=== PATIENT | male | born 1995 | race African-American/Black ===

== ENCOUNTER 2016-08-14 07:06 | Emergency (ER) | payer OTHER ==
[~2016-08-14] VITALS: Ht 177.8 cm; Wt 105.5 kg
[2016-08-14 07:13] VITALS: TEMP 37.1; Ht 177.8 cm; Wt 105.5 kg
[2016-08-14] MEDS ORDERED: SODIUM CHLORIDE 0.9% 1000ML 1,000 ML IV STA ×2 (07:46→08:18)
[2016-08-14] MEDS ORDERED: ONDANSETRON INJ 2 MG/ML 2 ML VIAL IV STA (07:46)
[2016-08-14 07:56] LABS: BASO % 0.2 %; BASO ABS # 0.03 K/uL (0-0.2); COMPLETE YES; EOS % 1.2 %; HEMATOCRIT 44.6 % (42-52); IG% 0.2 %; LYMPH % 20.4 %; LYMPH ABS # 2.56 K/uL (1.2-3.4); MEAN CELL VOLUME 89.6 fL (80-100); MEAN CORPUSCULAR HEMOGLOBIN 30.3 pg (25-34); MEAN CORPUSCULAR HGB CONC 33.9 g/dl (32-36); MONO % 6.9 %; NEUT % 71.1 %; PLATELET COUNT 242 K/uL (130-400); RED BLOOD COUNT 4.98 M/uL (4.7-6.1); WHITE BLOOD COUNT 12.55 K/uL (4.8-10.8)
[2016-08-14 08:04] LABS: CREATININE 1.1 mg/dl (0.60-1.40)
[2016-08-14 08:05] LABS: BUN/CREATININE RATIO 12.1 (10-20); CALCIUM 9.3 mg/dl (8.5-10.1)
--- NOTE | 2016-08-14 08:36 | EMERGENCY ROOM VISIT NOTE ---
History First contact with patient: 07:16 Chief Complaint: VOMITING Stated Complaint: VOMITING AND PERSISTENT NAUSEA Nursing Triage Summary: Pt states "I had a sore throat and I took this sore throat spray. My girlfriend told me to swallow it and now I have been throwing up and diarrhea." Pt reports symptoms started at 0100 this am. History of Present Illness The patient is a 20 year old male who presents to the Emergency Department by private vehicle for evaluation of his nausea, vomiting, and diarrhea. He reports that last evening he had a sore throat. He used Cepacol spray in his throat. Approximate one hour later at 1 AM he developed nausea, vomiting, and diarrhea. He's had persistent symptoms since. The patient denies any fevers or chills. He denies any headaches, dizziness, lightheadedness, hematemesis, hematochezia, melena, hematuria, or dysuria. He denies any pain rating his discomfort a 0/10. He reports no recent long distance travel, consumption of raw/undercooked foods, drinking from poor water sources, or recent antibiotic use. He denies any recent sick contacts. The patient reports no previous abdominal surgeries. Review of Systems A complete 10-point Review of Systems was discussed with the patient, with pertinent positives and negatives listed in the History of Present Illness. All remaining Review of Systems questions can be considered negative unless otherwise specified. Social History Smoking Status: Never Smoker Smokeless Tobacco Use: No Drug Use: none Marital Status: single Housing Status: lives with roommate Occupation Status: [employer] student Current/Historical Medications Scheduled PRN Ondasetron Odt (Zofran Odt), 1 TAB SL Q6 PRN for Nausea or Vomiting Allergies Coded Allergies: No Known Allergies (Unverified , 08/14/16) Physical Exam Vital Signs Date Time Temp Pulse Resp B/P Pulse Ox O2 Delivery O2 Flow Rate FiO2 08/14/16 10:45 105 17 123/85 100 Room Air 08/14/16 09:18 101 16 149/100 99 Room Air 08/14/16 07:13 37.1 102 16 166/91 98 Room Air Pain Rating (0-10): 0 Physical Exam VITAL SIGNS - Vital signs and nursing notes were reviewed. GENERAL - 20-year-old male appearing his stated age who is in no acute distress. Communicates well with provider and answers questions appropriately. HEAD - NC/AT. EYES - PERRL with EOMI bilaterally. Sclera anicteric. Palpebral conjunctiva pink and moist with no injection noted. EARS - No deformities of external structures noted on gross examination bilaterally. No pain elicited with palpation of the tragus bilaterally. External auditory canals without discharge or otorrhea. Tympanic membranes pearly ray without retraction or bulging. NOSE - Midline and without cyanosis. No epistaxis or purulent drainage noted. Septum midline without deviation or septal hematoma noted. MOUTH/OROPHARYNX - Without perioral cyanosis. Buccal mucosa pink and moist and without leukoplakia. Tongue midline with equal elevation of palate bilaterally. No tonsillar hypertrophy, erythema, or exudates noted. Good dentition noted. NECK - Neck with FROM. Supple to palpation. No nuchal rigidity. LUNGS - Chest wall symmetric without accessory muscle use, intercostals retractions, or central cyanosis. Normal vesicular breath sounds CTA B/L. No wheezes, rales, or rhonchi appreciated. CARDIAC - RRR with S1/S2. No murmur, rubs, or gallops appreciated. ABDOMEN - Abdominal contour obese and without pulsations or visible masses. BS normoactive all four quadrants. No tenderness to palpation appreciated throughout. No guarding. No Rebound Tenderness. Negative Rovsing's. Negative Gibson's. No palpable masses, hepatosplenomegaly, or ascites noted. PSYCH - A&Ox3 and cooperates fully with examiner. Pt is very pleasant and interacts well with examiner. Medical Decision & Procedures Laboratory Results 08/14/16 07:35 Red Blood Count 4.98, Mean Corpuscular Volume 89.6, Mean Corpuscular Hemoglobin 30.3, Mean Corpuscular Hemoglobin Concent 33.9, Mean Platelet Volume 11.0, Neutrophils (%) (Auto) 71.1, Lymphocytes (%) (Auto) 20.4, Monocytes (%) (Auto) 6.9, Eosinophils (%) (Auto) 1.2, Basophils (%) (Auto) 0.2, Neutrophils # (Auto) 8.91, Lymphocytes # (Auto) 2.56, Monocytes # (Auto) 0.87, Eosinophils # (Auto) 0.15, Basophils # (Auto) 0.03 08/14/16 07:35 Test 08/14/16 07:35 08/14/16 08:50 White Blood Count 12.55 K/uL (4.8-10.8) Red Blood Count 4.98 M/uL (4.7-6.1) Hemoglobin 15.1 g/dL (14.0-18.0) Hematocrit 44.6 % (42-52) Mean Corpuscular Volume 89.6 fL (80-100) Mean Corpuscular Hemoglobin 30.3 pg (25-34) Mean Corpuscular Hemoglobin Concent 33.9 g/dl (32-36) Platelet Count 242 K/uL (130-400) Mean Platelet Volume 11.0 fL (7.4-10.4) Neutrophils (%) (Auto) 71.1 % Lymphocytes (%) (Auto) 20.4 % Monocytes (%) (Auto) 6.9 % Eosinophils (%) (Auto) 1.2 % Basophils (%) (Auto) 0.2 % Neutrophils # (Auto) 8.91 K/uL (1.4-6.5) Lymphocytes # (Auto) 2.56 K/uL (1.2-3.4) Monocytes # (Auto) 0.87 K/uL (0.11-0.59) Eosinophils # (Auto) 0.15 K/uL (0-0.5) Basophils # (Auto) 0.03 K/uL (0-0.2) RDW Standard Deviation 38.1 fL (36.4-46.3) RDW Coefficient of Variation 11.8 % (11.5-14.5) Immature Granulocyte % (Auto) 0.2 % Immature Granulocyte # (Auto) 0.03 K/uL (0.00-0.02) Anion Gap 10.0 mmol/L (3-11) Est Creatinine Clear Calc Drug Dose 131.4 ml/min Estimated GFR () 112.2 Estimated GFR (Non- 96.8 BUN/Creatinine Ratio 12.1 (10-20) Calcium Level 9.3 mg/dl (8.5-10.1) Magnesium Level 2.0 mg/dl (1.8-2.4) Total Bilirubin 1.4 mg/dl (0.2-1) Aspartate Amino Transf (AST/SGOT) 11 U/L (15-37) Alanine Aminotransferase (ALT/SGPT) 18 U/L (12-78) Alkaline Phosphatase 98 U/L (45-117) Total Protein 8.2 gm/dl (6.4-8.2) Albumin 4.1 gm/dl (3.4-5.0) Globulin 4.1 gm/dl (2.5-4.0) Albumin/Globulin Ratio 1.0 (0.9-2) Lipase 127 U/L (73-393) Urine Color YELLOW Urine Appearance CLEAR (CLEAR) Urine pH 7.0 (4.5-7.5) Urine Specific [place] 1.009 (1.000-1.030) Urine Protein NEG (NEG) Urine Glucose (UA) NEG (NEG) Urine Ketones NEG (NEG) Urine Occult Blood NEG (NEG) Urine Nitrite NEG (NEG) Urine Bilirubin NEG (NEG) Urine Urobilinogen NEG (NEG) Urine Leukocyte Esterase NEG (NEG) Medications Administered Medications (Trade) Dose Ordered Sig/Amanda Route Start Time Stop Time Status Last Admin Dose Admin Sodium Chloride (Nss 1000ml) 1,000 ml @ 999 mls/hr Q1H1M STAT IV 08/14/16 07:46 08/14/16 08:46 DC 08/14/16 07:46 999 MLS/HR Ondansetron HCl 4 mg 4 mg NOW STAT IV 08/14/16 07:46 08/14/16 07:48 DC 08/14/16 07:53 4 MG Sodium Chloride (Nss 1000ml) 1,000 ml @ 999 mls/hr Q1H1M STAT IV 08/14/16 08:18 08/14/16 09:18 DC 08/14/16 09:17 999 MLS/HR ED Course Patient was seen and evaluated by myself. Labs were drawn, saline lock in place. The patient was hydrated with a 1000 mL normal saline bolus. He received 4 mg Zofran intravenously for nausea. Laboratory results demonstrated a mild leukocytosis. The patient is not anemic. There are no significant electrolyte abnormalities. Urinalysis is unremarkable. The patient was hydrated with an additional 1000 mL normal saline. The patient reports feeling much better at this time. The patient was encouraged to continue to follow up with his primary care provider from today's visit. He was educated on worrisome symptoms for return visit to the emergency department. Patient discharged home in good condition. Medical Decision Given the patient's presentation and stated complaints, I did elect to perform the above-mentioned workup. The patient presents today with nausea, vomiting, diarrhea. He did have a sore throat. Rapid strep sided negative. The patient had a mild cytosis. His abdomen is soft and nontender to palpation. Patient is likely experiencing an acute gastritis. He responded well to IV fluid resuscitation and antinausea medication. The patient will follow-up with [facility] from today's visit. He will return for any changing/ worsening symptoms. Patient discharged home afebrile and in good condition. In the evaluation and treatment of this patient, the following differential diagnoses were considered: Appendicitis, Diverticulitis, Diverticulosis, Colitis , Ischemic Colitis, Inflammatory Bowel Disease, Irritable Bowel Disease, Testicular Torsion, Kidney Stone, Pyelonephritis, Hydronephrosis, Cholecystitis , Ascending Cholangitis, Choledocholithiasis, GERD. Impression Primary Impression: Nausea, vomiting, and diarrhea Additional Impression: Sore throat Departure Information Dispostion Home / Self-Care Condition GOOD Prescriptions Ondasetron Odt (ZOFRAN ODT) 4 Mg Tab 1 TAB SL Q6 Y for Nausea or Vomiting for 5 Days, #20 TAB Prov: Justyn Benites, CHRISTINE 08/14/16 Referrals No Doctor, Assigned (PCP) Patient Instructions ED Food Poison Or Gastroenteritis, [facility] Additional Instructions You have been treated in the Emergency Department your Nausea, Vomiting, and Diarrhea. You have been prescribed Zofran to be used for any nausea or vomiting. Take as prescribed. For pain control, you can use the following wcal-eey-[id number] medicines (if >12 yo): - Regular strength (325mg/tab) Tylenol (acetaminophen) 2 tabs every 4-6 hours as needed. Do not exceed 12 tablets in a 24 hour period. Avoid taking more than 4 grams (4000 mg) of Tylenol per day. This includes any other sources of acetaminophen you may take on a regular basis. - Regular strength (200 mg/tab) Advil (ibuprofen) 1-2 tabs every 4-6 hours as needed. Do not exceed a dose of 3200 mg per day. Drink plenty of water and stay well hydrated. As with any trip to the Emergency Department, you should follow-up with your Primary Care Provider from today's visit. Return to the emergency department if your symptoms persist despite treatment plan outlined above or if the following symptoms occur: increased fevers, chills , worsening nausea/vomiting, blood in your stool or urine. Problem Qualifiers
[2016-08-14 09:49] LABS: URINE APPEARANCE CLEAR (CLEAR); URINE BILIRUBIN NEG (NEG); URINE COLOR YELLOW; URINE NITRITE NEG (NEG); URINE SPECIFIC GRAVITY 1.009 (1.000-1.030); UROBILINOGEN NEG (NEG); ZZUR CULT IF INDIC CLEAN CATCH NO
[2016-08-14 09:50] LABS: MANUAL MICROSCOPIC REQUIRED? NO; REVIEW REQ? NO
[2016-08-14] MEDS ORDERED: ONDA4TAB10 SL (10:22)
[2016-08-14 10:45] VITALS: BP 123/85; PULSE 105; O2SAT 100
== END 2016-08-14 10:54 | disposition home or self-care (01) ==
LOC: C.EDB 07:08 → C.EDA 10:54
DX: K52.9 Noninfective gastroenteritis and colitis, unspecified (principal); R11.2 Nausea with vomiting, unspecified; R19.7 Diarrhea, unspecified; D72.829 Elevated white blood cell count, unspecified

== ENCOUNTER 2017-03-27 23:10 | Emergency (ER) | payer OTHER ==
[~2017-03-27] VITALS: Ht 182.9 cm; Wt 113.9 kg
[2017-03-27 23:17] VITALS: TEMP 36.8; Ht 182.9 cm; Wt 113.9 kg
--- NOTE | 2017-03-27 23:56 | EMERGENCY ROOM VISIT NOTE ---
History Report prepared by Moriah: Vishnu Mendoza Under the Supervision of: Dr. Erika Willard D.O. First contact with patient: 23:22 Chief Complaint: TACHYCARDIA Stated Complaint: CHEST PAIN, STOMACH PAIN, HEART BEATING FAST Nursing Triage Summary: Patient reports chest and abdominal pain since friday. Patient reports tonight experienceing palpitations. History of Present Illness The patient is a 21 year old male who presents to the Emergency Room with complaints of worsening chest pain that started 2 days ago. He says that the pain has been constant, but he woke up with worsened pain this morning. He adds that he has had constant abdominal pain that started 2 days ago as well, which he describes as a heaviness. The patient notes that he has never had anything like this before. The patient says that around 6 hours ago, he had an episode where he felt like his heart was racing. He adds that his chest feels like it is "chelsey". The patient notes that he vomited once yesterday. He adds that he ate [employer] before coming here, and says that he is nauseous. The patient states that the last time he ate before that was around 1300 this afternoon, as he had exams. He denies any shortness of breath, sore throat, cough, diarrhea, constipation, urinary symptoms, penis drainage, groin pain, leg cramping, or leg swelling. He says that he has no medical problems and does not take any daily medications. The patient states that he has not used any over -the-counter medications or any supplements, but does drink vitamin water. He adds that he exercises around 2 to 3 times per week. Source of History: patient Onset: 2 days ago Position: chest Quality: other (feels like it is "chelsey") Timing: worsening Associated Symptoms: + nausea, + vomiting, + abdominal pain (heaviness), No sorethroat, No cough, No SOB, No diarrhea, No urinary symptoms Note: Associated symptoms: Episode of heart racing earlier. Denies constipation, penis drainage, groin pain, leg cramping, leg swelling. Review of Systems See HPI for pertinent positives & negatives. A total of 10 systems reviewed and were otherwise negative. Past Medical & Surgical Medical Problems: (1) HTN (hypertension) (2) No chronic diseases present Family History Cancer Diabetes mellitus Hypertension Social History Smoking Status: Never Smoker Drug Use: none Marital Status: single Housing Status: lives with roommate Occupation Status: [employer] student Current/Historical Medications No Active Prescriptions or Reported Meds Allergies Coded Allergies: No Known Allergies (Unverified , 03/27/17) Physical Exam Vital Signs Date Time Temp Pulse Resp B/P (MAP) Pulse Ox O2 Delivery O2 Flow Rate FiO2 03/28/17 02:22 70 16 120/64 99 03/28/17 00:50 94 18 150/83 98 Room Air 03/27/17 23:36 92 03/27/17 23:17 36.8 97 20 139/85 98 Room Air Physical Exam HEENT: Head - normocephalic and atraumatic Pupils are equal, round, and reactive to light. Extraocular eye muscles are intact, and sclera are anicteric. Nose - moist nasal mucosa without discharge. Mouth - moist buccal mucosa. Oropharynx is nonerythematous and there is no tonsillar exudate or edema noted. Neck: Supple; no JVD, nuchal rigidity, cervical lymphadenopathy. Heart: Regular rate and rhythm. There is a normal S1 and S2 with no murmurs, clicks, or gallops appreciated. Lungs: Clear to auscultation bilaterally with no wheezes, rales, or rhonchi. Abdomen: Soft, moderate tenderness over McBurney's point, nondistended, with good bowel sounds. There are no palpable pulsatile masses or hepatosplenomegaly. There is no guarding, rigidity, or rebound noted. Extremities: No evidence of cyanosis, clubbing, or edema. There are easily palpable peripheral pulses. Skin: warm and dry with good turgor and no rashes. Medical Decision & Procedures ER Provider Diagnostic Interpretation: CT results as stated below per my review and radiologist interpretation: CT ABDOMEN & PELVIS: Unremarkable appendix. No colitis or bowel obstruction. No renal calculi or obstructive changes. Radiologist: Irma Bullard M.D. Study read at 00:52 and initial results transmitted at 01:15 Laboratory Results 03/27/17 23:25 Red Blood Count 5.01, Mean Corpuscular Volume 90.8, Mean Corpuscular Hemoglobin 30.5, Mean Corpuscular Hemoglobin Concent 33.6, Mean Platelet Volume 10.8, Neutrophils (%) (Auto) 68.7, Lymphocytes (%) (Auto) 22.9, Monocytes (%) (Auto) 6.0, Eosinophils (%) (Auto) 2.0, Basophils (%) (Auto) 0.2, Neutrophils # (Auto) 8.08, Lymphocytes # (Auto) 2.69, Monocytes # (Auto) 0.70, Eosinophils # (Auto) 0.23, Basophils # (Auto) 0.02 03/27/17 23:25 Test 03/27/17 23:15 03/27/17 23:25 Urine Color YELLOW Urine Appearance CLEAR (CLEAR) Urine pH 6.5 (4.5-7.5) Urine Specific [place] 1.021 (1.000-1.030) Urine Protein NEG (NEG) Urine Glucose (UA) NEG (NEG) Urine Ketones NEG (NEG) Urine Occult Blood NEG (NEG) Urine Nitrite NEG (NEG) Urine Bilirubin NEG (NEG) Urine Urobilinogen NEG (NEG) Urine Leukocyte Esterase NEG (NEG) White Blood Count 11.74 K/uL (4.8-10.8) Red Blood Count 5.01 M/uL (4.7-6.1) Hemoglobin 15.3 g/dL (14.0-18.0) Hematocrit 45.5 % (42-52) Mean Corpuscular Volume 90.8 fL (80-100) Mean Corpuscular Hemoglobin 30.5 pg (25-34) Mean Corpuscular Hemoglobin Concent 33.6 g/dl (32-36) Platelet Count 283 K/uL (130-400) Mean Platelet Volume 10.8 fL (7.4-10.4) Neutrophils (%) (Auto) 68.7 % Lymphocytes (%) (Auto) 22.9 % Monocytes (%) (Auto) 6.0 % Eosinophils (%) (Auto) 2.0 % Basophils (%) (Auto) 0.2 % Neutrophils # (Auto) 8.08 K/uL (1.4-6.5) Lymphocytes # (Auto) 2.69 K/uL (1.2-3.4) Monocytes # (Auto) 0.70 K/uL (0.11-0.59) Eosinophils # (Auto) 0.23 K/uL (0-0.5) Basophils # (Auto) 0.02 K/uL (0-0.2) RDW Standard Deviation 39.3 fL (36.4-46.3) RDW Coefficient of Variation 11.7 % (11.5-14.5) Immature Granulocyte % (Auto) 0.2 % Immature Granulocyte # (Auto) 0.02 K/uL (0.00-0.02) Anion Gap 8.0 mmol/L (3-11) Est Creatinine Clear Calc Drug Dose 139.6 ml/min Estimated GFR () 111.4 Estimated GFR (Non- 96.1 BUN/Creatinine Ratio 13.9 (10-20) Calcium Level 9.5 mg/dl (8.5-10.1) Total Bilirubin 1.2 mg/dl (0.2-1) Direct Bilirubin 0.2 mg/dl (0-0.2) Aspartate Amino Transf (AST/SGOT) 9 U/L (15-37) Alanine Aminotransferase (ALT/SGPT) 15 U/L (12-78) Alkaline Phosphatase 103 U/L (45-117) Total Protein 8.4 gm/dl (6.4-8.2) Albumin 4.3 gm/dl (3.4-5.0) Lipase 125 U/L (73-393) Laboratory results per my review. ECG Indication: chest pain Rate (beats per minute): 94 Rhythm: normal sinus Findings: no acute ischemic change, no ectopy ED Course 2341: Past medical records reviewed. The patient was evaluated in room B10. A complete history and physical exam was performed. An IV lock was initiated and labs are drones above. A urine specimen was obtained along with a twelve-lead EKG. The patient will go for CT scan of the abdomen/pelvis. 0103: I reevaluated the patient and his nausea is better. 0141: I reevaluated the patient and he is feeling okay. His nausea if gone, and he is eating crackers and drinking johan maryam. I reviewed laboratory studies and the results of his CT scan with him. The patient verbally expressed understanding and agreement of the treatment plan. The patient will be discharged. Medical Decision The patient is a 21 year old male who presents to the ED with chest pain and abdominal pain. Differential diagnosis includes colitis, appendicitis, constipation, cystitis. Lab results show a white count of 11.4, no left shift, normal renal function and glucose, normal lipase and LFT's, negative urinalysis. This is a 21-year-old male patient presents to the emergency department with some diffuse abdominal pain and chest discomfort. On physical exam, the patient 's pain seemed to be localized in the right lower quadrant over McBurney's point. His symptoms started 2 days ago. He does describe loss of appetite. He had a mild leukocytosis. However, CT scan of the abdomen/pelvis showed no evidence of appendicitis. He was symptom-free at the time of discharge. EKG was unremarkable. I've asked the patient to follow-up at the [facility] if he has persistent symptoms throughout the day today. If Symptoms worsen, he should return here to the ER. Medication Reconcilliation Current Medication List: was personally reviewed by me No daily medications. Blood Pressure Screening Patient's blood pressure: Elevated blood pressure Blood pressure disposition: Elevated BP felt to be situational Impression Primary Impression: Right lower quadrant abdominal pain Additional Impression: Atypical chest pain Scribe Attestation The scribe's documentation has been prepared under my direction and personally reviewed by me in its entirety. I confirm that the note above accurately reflects all work, treatment, procedures, and medical decision making performed by me. Departure Information Dispostion Home / Self-Care Prescriptions No Active Prescriptions or Reported Meds Referrals No Doctor, Assigned (PCP) Forms HOME CARE DOCUMENTATION FORM, IMPORTANT VISIT INFORMATION, WORK / SCHOOL INSTRUCTIONS Patient Instructions ED Abdominal Pain Unkn Cause Male, ED Chest Pain Atypical Unkn Cause, [facility] [employer] Additional Instructions Rest. Take a bland diet. Return to the ER for worsening symptoms. Follow up by this afternoon at [facility] if symptoms continue Problem Qualifiers
[2017-03-28] MEDS ORDERED: OPTIRAY 320 IV PRN
[2017-03-28 00:02] LABS: BASO % 0.2 %; BASO ABS # 0.02 K/uL (0-0.2); COMPLETE YES; HEMATOCRIT 45.5 % (42-52); IG% 0.2 %; LYMPH % 22.9 %; LYMPH ABS # 2.69 K/uL (1.2-3.4); MEAN CELL VOLUME 90.8 fL (80-100); MEAN CORPUSCULAR HEMOGLOBIN 30.5 pg (25-34); MEAN CORPUSCULAR HGB CONC 33.6 g/dl (32-36); MEAN PLATELET VOLUME 10.8 fL (7.4-10.4); NEUT % 68.7 %; PLATELET COUNT 283 K/uL (130-400); RED BLOOD COUNT 5.01 M/uL (4.7-6.1); WHITE BLOOD COUNT 11.74 K/uL (4.8-10.8)
[2017-03-28 00:14] LABS: URINE APPEARANCE CLEAR (CLEAR); URINE BILIRUBIN NEG (NEG); URINE COLOR YELLOW; URINE NITRITE NEG (NEG); URINE PH 6.5 (4.5-7.5); URINE SPECIFIC GRAVITY 1.021 (1.000-1.030); UROBILINOGEN NEG (NEG)
[2017-03-28 00:18] LABS: MANUAL MICROSCOPIC REQUIRED? NO; REVIEW REQ? NO
[2017-03-28 00:21] LABS: BUN/CREATININE RATIO 13.9 (10-20); CALCIUM 9.5 mg/dl (8.5-10.1); CREATININE 1.1 mg/dl (0.60-1.40); POTASSIUM 3.4 mmol/L (3.5-5.1)
[2017-03-28 02:22] VITALS: BP 120/64; PULSE 70; O2SAT 99
--- NOTE | 2017-03-28 06:43 | DIAGNOSTIC IMAGING REPORT ---
CT OF THE ABDOMEN AND PELVIS WITH CONTRAST CLINICAL HISTORY: Right-sided abdominal pain. Epigastric pain. COMPARISON STUDY: None. TECHNIQUE: Following IV administration of 93 mL of Optiray-320, axial images of the abdomen and pelvis were obtained from the lung bases to the proximal femurs. Images were reviewed in the axial, sagittal, and coronal planes. IV contrast was administered without complication. A dose lowering technique was utilized adhering to the principles of ALARA. CT DOSE: 893.43 mGy.cm FINDINGS: Lung bases are clear. The liver, spleen, adrenal glands, kidneys and pancreas are normal. Caliber and wall thickness of small and large bowel are normal. The appendix is normal. There is no hydronephrosis. No biliary or pancreatic ductal dilatation is present. There is no lymphadenopathy. No suspicious skeletal lesions are identified. IMPRESSION: No acute process within the abdomen and pelvis. Normal appendix. Electronically signed by: Zacarias Araya M.D. 03/28/2017 6:41 AM Dictated Date/Time: 03/28/2017 6:38 AM
== END 2017-03-28 02:22 | disposition home or self-care (01) ==
LOC: C.EDB 23:11
DX: R07.89 Other chest pain (principal); R10.31 Right lower quadrant pain; I10 Essential (primary) hypertension; Z80.9 Family history of malignant neoplasm, unspecified; Z83.3 Family history of diabetes mellitus; Z82.49 Family history of ischemic heart disease and other diseases of the circulatory system

== ENCOUNTER 2018-02-15 02:05 | Emergency (ER) | payer OTHER ==
[2018-02-15 02:22] VITALS: TEMP 36.6
[2018-02-15 02:25] VITALS: O2SAT 98
[2018-02-15 02:57] LABS: BLOOD UREA NITROGEN 14 mg/dl (7-18); CALCIUM 8.9 mg/dl (8.5-10.1); CARBON DIOXIDE 22 mmol/L (21-32); CREATININE 1.15 mg/dl (0.60-1.40); GLUCOSE 125 mg/dl (70-99); POTASSIUM 3.1 mmol/L (3.5-5.1); SODIUM 135 mmol/L (136-145)
[2018-02-15 06:50] VITALS: BP 140/83; PULSE 94; O2SAT 97
--- NOTE | 2018-02-16 02:24 | EMERGENCY ROOM VISIT NOTE ---
ED Visit Note First contact with patient: 02:08 CHIEF COMPLAINT: Altered mental status from Alcohol overdose HISTORY OF PRESENT ILLNESS: This 22 year old male patient presents to the emergency department via ambulance for evaluation of altered mental status, presumably from alcohol intoxication. Patient was found in an alley way in [facility] sleeping on a curb. He was noted to have emesis down the front of his shirt. The patient was difficult to arouse for passerby's, and EMS was contacted. The patient admits to drinking alcohol tonight. He denies drug use. He does not report injury or chronic medical disease. REVIEW OF SYSTEMS: Review of systems was somewhat limited secondary to patient' s presumed alcohol intoxication status. Review of systems was performed to the best of our ability and reperformed as the patient began to sober up. All other systems were reviewed and are negative. ALLERGIES: See EMR MEDICATIONS: See EMR PMH: No chronic medical disease SOCIAL HISTORY: Drinks alcohol PHYSICAL EXAM VITALS: Vitals are noted on the nurse's note and reviewed by myself. Vital signs stable. GENERAL: Male, who is in no acute distress and resting comfortably. Patient is visibly altered and smells of alcohol. HEAD: Normocephalic atraumatic. EARS: External ear normal. External auditory canals clear, tympanic membranes pearly ray without erythema or effusion bilaterally. EYES: Pupils equal round and reactive to light and accommodation. Conjunctivae without injection, sclerae without icterus. Extraocular movements intact. NOSE: Patent, turbinates without inflammation or discharge. MOUTH: Mucous membranes moist. Tonsils are not enlarged. Pharynx without erythema, blood, vomitus, or exudate. Uvula midline. Airway patent. NECK: Supple without nuchal rigidity. No lymphadenopathy. Cervical spine is nontender. HEART: Regular rate and rhythm without murmurs gallops or rubs. LUNGS: Clear to auscultation bilaterally without wheezes, rales or rhonchi. No retractions or accessory muscle use. ABDOMEN: Positive normal bowel sounds x 4. Soft, nontender, without masses or organomegaly. No guarding or rebound tenderness. MUSCULOSKELETAL: No muscle atrophy, erythema, or edema noted. Gross motor function intact to all extremities. NEURO: Patient was alert to person but not place or time. They appear with altered mental status. SKIN: The skin was without rashes, erythema, edema, or bruising. No Tenting of the skin. EMERGENCY DEPARTMENT COURSE: Physical exam and history was performed. Nursing notes and EMR were reviewed. The patient appears to be altered on my examination. I suspect this is from an alcohol overdose. Conservative care measures and aspiration precautions were instituted. The patient was placed on campus monitor and watched during the patient's stay. The patient was placed in a prone position. Blood work was obtained and was reviewed. The patient's blood alcohol level was 166. This appears to be the primary cause of the altered status. Patient was reevaluated multiple times throughout the course of their emergency department stay. Over time the patient did sober up and was able to talk, walk , and drink fluids without difficulty. The patient was felt stable for discharge home. The patient was given alcohol intoxication handouts. The patient was discharged home in stable condition when sober. Differential diagnosis: Etiologies such as alcohol intoxication, metabolic, infection, hypoglycemia, electrolyte abnormalities, cardiac sources, intracerebral event, toxicologic, neurologic, as well as others were entertained. DIAGNOSIS: Alcohol use with intoxication Problem List Medical Problems: (1) HTN (hypertension) Status: Resolved (2) No chronic diseases present Status: Chronic Current/Historical Medications Unable to Obtain Active Prescriptions or Reported Meds Allergies Coded Allergies: No Known Allergies (Unverified , 03/27/17) Vital Signs Date Time Temp Pulse Resp B/P (MAP) Pulse Ox O2 Delivery O2 Flow Rate FiO2 02/15/18 06:50 94 18 140/83 97 Room Air 02/15/18 05:45 94 02/15/18 04:22 95 18 119/68 95 Room Air 02/15/18 02:25 98 Room Air 02/15/18 02:25 98 Room Air 02/15/18 02:22 36.6 108 20 136/94 95 Room Air 02/15/18 02:20 103 Laboratory Results 02/15/18 02:31 Test 02/15/18 02:31 Anion Gap 10.0 mmol/L (3-11) Estimated GFR () 104.8 Estimated GFR (Non- 90.5 BUN/Creatinine Ratio 12.0 (10-20) Calcium Level 8.9 mg/dl (8.5-10.1) Ethyl Alcohol mg/dL 166.0 mg/dl (0-3) Departure Information Impression Primary Impression: Alcohol use with intoxication Dispostion Home / Self-Care Condition GOOD Prescriptions Unable to Obtain Active Prescriptions or Reported Meds Forms HOME CARE DOCUMENTATION FORM, IMPORTANT VISIT INFORMATION Patient Instructions My [facility], ED Alcohol Intoxication Additional Instructions You were seen and evaluated today on an emergency basis only. This is not a substitute for, or an effort to provide, complete comprehensive medical care. It is not possible to recognize and treat all injuries or illnesses in a single emergency department visit. Keep well-hydrated. Small sips of water over a long period of time are better tolerated than large amounts at once. Tylenol 1000 mg every 6 hours as needed for pain (Maximum 3000 mg Tylenol in 24 hr period). Follow up with family doctor as needed. You are welcome to return to the emergency department anytime with new, worsening, or concerning symptoms.
== END 2018-02-15 07:14 | disposition home or self-care (01) ==
LOC: EDBD 02:05 → C.EDA 02:06
DX: F10.929 Alcohol use, unspecified with intoxication, unspecified (principal); Y90.6 Blood alcohol level of 120-199 mg/100 ml; I10 Essential (primary) hypertension